=== PATIENT | male | born 1980 | race Caucasian/White ===

== ENCOUNTER 2019-07-07 13:04 | Emergency (ER) | payer BC ==
[~2019-07-07] VITALS: Ht 175.3 cm; Wt 84.4 kg
[2019-07-07 13:23] VITALS: Ht 175.3 cm; Wt 84.4 kg
[2019-07-07 15:36] VITALS: BP 122/85
== END 2019-07-07 15:36 | disposition home or self-care (01) ==
LOC: ED 13:04
DX: S93.402A Sprain of unspecified ligament of left ankle, initial encounter (principal); S93.602A Unspecified sprain of left foot, initial encounter; X50.1XXA Overexertion from prolonged static or awkward postures, initial encounter; Y93.67 Activity, basketball; Y92.310 Basketball court as the place of occurrence of the external cause; Y99.8 Other external cause status
CPT/HCPCS: Q0092